=== PATIENT | male | born 1955 | race Caucasian/White ===

== ENCOUNTER 2016-10-11 06:49 | Day surgery (SDC) | payer BC, OTHER ==
[~2016-10-11 06:49] MED LIST: ACETAMINOPHEN 1,000 MG/100 ML BTL IV ONE; CEFAZOLIN 2 Gram 2 GM/50 ML BAG IVPB ONE; FAMOTIDINE 20MG TABLET PO ONE; MECLIZINE 25 MG TABLET PO ONE; METOCLOPRAMIDE 10 MG TABLET PO ONE
[2016-10-11] MEDS ORDERED: LIDOCAINE 1% W/EPI 1:100,000 MDV 20 ML VIAL IV ONE (11:33)
[2016-10-11] MEDS ORDERED: BUPIVACAINE 0.5% W/EPI MPF 30 ML VIAL IVP ONE (11:33)
[2016-10-11] MEDS ORDERED: CEFAZOLIN 1G VIAL IM ONE (11:33)
[2016-10-11] MEDS ORDERED: OXYCODONE HCL/APAP 5MG/325MG TABLET PO ONE (11:33)
[2016-10-11] MEDS ORDERED: PROPOFOL 10 MG/ML VIAL IV ONE (14:00)
[2016-10-11] MEDS ORDERED: LIDOCAINE 2% MDV (20MG/ML) 20ML VIAL IV ONE (14:00)
[2016-10-11] MEDS ORDERED: HYDROMORPHONE HCL 2 MG/ML VIAL IV ONE (14:00)
--- NOTE | 2016-10-18 18:54 | Operative Note ---
DATE OF SURGERY: 10/11/2016. PREOPERATIVE DIAGNOSES: 1. Postlumbar laminectomy syndrome, ICD-10 Code M96.1. 2. Lumbar radiculitis, ICD-10 Code M54.16, M54.17. 3. Implanted spinal fusion system pump and catheter nonfunctional. OPERATION: 1. Incision, subsection, and removal of indwelling spinal catheter. 2. Incision, subsection, and removal of indwelling programmable pump. Surgeon: Jacob Escamilla DO. Anesthesia: Local with sedation. Anesthesia Provider: Nathan Pearson CRNA. Indication: This patient presents with a history of an intractable radiculitis managed previously by an infusion device. Over the years, because of 50+% weight loss from cancer, the pump protruded, became irritating. Despite multiple efforts at desensitizing the area, it became more and more painful. He is requesting removal of the device. Slow, gradual titrations have reduced the infusion to keep open. PROCEDURE: Intravenous line, vital sign monitoring, and IV sedation by Anesthesia. Patient positioned prone. Sterile prep, sterile technique. Under imaging, the midline incision for the spinal catheter under imaging identified. Skin infiltrated. Incision made. Subcutaneous dissection was conducted to the catheter and its anchor, the suture removed, the anchor removed intact, a pursestring suture placed around the penetration point for the catheter, and then the catheter was removed as the pursestring was tightened, stopping CSF leak. Antibiotic irrigation and Bovie for hemostasis. At the left flank pump pouch, skin infiltrated, incision made. A subcutaneous dissection was conducted to the pump. The pump was then exteriorized and removed, along with its catheter components. A Dacron sheath in place too heavily fibrosed and scarred in. It was cut at its ends. Antibiotic irrigation and Bovie for hemostasis. The incisions were then closed with Vicryl for fascia and a running subcuticular Vicryl for the skin, Dermabond closure. He was transported to the recovery room stable, showing no side effects fro the procedure or the sedation. When fully awake and alert, he was prepared for discharge. DISCHARGE INSTRUCTIONS: 1. The sites will remain clean and dry, although the Dermabond will allow showering. 2. Standard medications resumed, including antibiotic Levaquin 500 mg once a day for 14 days. 3. He will resume standard medications. Should he have any side effects, including spinal headache, he should increase his fluid intake, stay flat for 12-24 hours. If unresolved, contact the clinic. All the other instructions provided, numbers to contact for problems given. He was then prepared for discharge. CC: DO Dr. Porfirio Emanuel
== END 2016-10-11 10:00 | disposition home or self-care (01) ==
LOC: SUR 06:49
PROVIDERS: ATTEND Pain Medicine Interventional Pain Medicine
DX: T85.695A Other mechanical complication of other nervous system device, implant or graft, initial encounter (principal); M96.1 Postlaminectomy syndrome, not elsewhere classified; M54.16 Radiculopathy, lumbar region; M54.17 Radiculopathy, lumbosacral region
CPT/HCPCS: 62365; 62355; 00300; J1170; J0690